=== PATIENT | female | born 1945 | race Caucasian/White ===

== ENCOUNTER 2016-12-04 08:25 | Day surgery (SDC) | payer MEDICARE ==
[~2016-12-04] VITALS: Ht 160 cm; Wt 97.5 kg
[~2016-12-04 08:25] MED LIST: APIX5TAB PO; ATOR10TA9 PO; DABI150C PO; FLUT9.9S NAS; LOSA100T6 PO; METO50TA82 PO; POLY17PO5 PO; SOTA120T26 PO
[2016-12-04 08:55] VITALS: BP 139/86
[2016-12-04] MEDS ORDERED: VALS160T3 PO (09:34)
[2016-12-04 10:10] LABS: ASPARTATE AMINO TRANSFERASE 23 U/L (15-37); BLOOD UREA NITROGEN 13 mg/dL (7-18)
[2016-12-04] MEDS ORDERED: PROPOFOL 10 MG/ML, 20ML ONE (10:53)
== END 2016-12-04 12:10 | disposition home or self-care (01) ==
LOC: CACL 08:25
PROVIDERS: ATTEND Internal Medicine Cardiovascular Disease
DX: I48.0 Paroxysmal atrial fibrillation (principal); I10 Essential (primary) hypertension; E78.5 Hyperlipidemia, unspecified; G47.33 Obstructive sleep apnea (adult) (pediatric); Z88.2 Allergy status to sulfonamides; Z88.6 Allergy status to analgesic agent; Z91.041 Radiographic dye allergy status; Z86.73 Personal history of transient ischemic attack (TIA), and cerebral infarction without residual deficits; Z79.01 Long term (current) use of anticoagulants
CPT/HCPCS: 36415; 71020; 80053; 85025; 92960; J2704

== ENCOUNTER 2017-02-19 10:25 | Day surgery (SDC) | payer MEDICARE ==
[~2017-02-19 10:25] MED LIST changes: +VALS160T3 PO
[2017-02-19] MEDS ORDERED: HYDR12.53 PO (11:16)
[2017-02-19] MEDS ORDERED: PROPOFOL 10 MG/ML, 20ML ONE (12:31)
[2017-02-19 12:43] LABS: BLOOD UREA NITROGEN 11 mg/dL (7-18)
[2017-02-19] MEDS ORDERED: SODIUM CHLORIDE FLUSH 10ML SYR IVF SCH (21:00)
== END 2017-02-19 13:47 ==
LOC: CACL 10:25
PROVIDERS: ATTEND Internal Medicine Cardiovascular Disease
DX: I48.91 Unspecified atrial fibrillation (principal); E78.5 Hyperlipidemia, unspecified; I10 Essential (primary) hypertension; Z88.6 Allergy status to analgesic agent; Z88.1 Allergy status to other antibiotic agents; Z91.09 Other allergy status, other than to drugs and biological substances; Z86.73 Personal history of transient ischemic attack (TIA), and cerebral infarction without residual deficits; Z87.891 Personal history of nicotine dependence
CPT/HCPCS: 36415; 80048; 92960; 93005; J2704

== ENCOUNTER → 2017-03-19 | Outpatient (CLI) | payer MEDICARE ==
[~2017-03-19] MED LIST changes: +ACET325T14 PO; +HYDR12.53 PO; +OMNIPAQUE 350 MG/ML, 150 ML BOTTLE ONE
== END | disposition home or self-care (01) ==
LOC: CFH 03-17 09:47
PROVIDERS: ATTEND Internal Medicine Cardiovascular Disease
DX: I48.91 Unspecified atrial fibrillation (principal)
CPT/HCPCS: 75572; Q9967; 71020

== ENCOUNTER 2017-03-20 06:35 | Observation (INO) | payer MEDICARE ==
[2017-03-17 11:54] VITALS: BP 165/71
[2017-03-17 12:18] LABS: HEMATOCRIT 43.6 % (34.6-47.8); HEMOGLOBIN 14.8 g/dL (11.7-16.4); WHITE BLOOD COUNT 8.8 x10^3/uL (3.4-10)
[2017-03-17 12:27] LABS: ASPARTATE AMINO TRANSFERASE 15 U/L (15-37); BLOOD UREA NITROGEN 17 mg/dL (7-18)
[~2017-03-20] VITALS: Ht 160 cm; Wt 99.8 kg
[~2017-03-20 06:35] MED LIST changes: -ACET325T14 PO; -OMNIPAQUE 350 MG/ML, 150 ML BOTTLE ONE
[2017-03-20] MEDS ORDERED: SODIUM CHLORIDE 0.9% 1,000 ML IV SCH ×2 (06:52→07:00)
[2017-03-20] MEDS ORDERED: PROTAMINE SULFATE 10 MG/ML, 5ML ONE (07:41)
[2017-03-20] MEDS ORDERED: HEPARIN 1,000 UNITS/ML, 10ML ONE (07:41)
[2017-03-20] MEDS ORDERED: LIDOCAINE 2%, 20ML ONE (07:41)
[2017-03-20] MEDS ORDERED: MIDAZOLAM 1 MG/ML, 5ML ONE (07:52)
[2017-03-20] MEDS ORDERED: FENTANYL PF 100 MCG/2ML ONE ×2 (07:52→08:36)
[2017-03-20] MEDS ORDERED: DEXAMETHASONE 4 MG/ML, 1ML ONE (08:00)
[2017-03-20] MEDS ORDERED: EPHEDRINE 50 MG/ML, 1ML ONE (08:00)
[2017-03-20] MEDS ORDERED: ROCURONIUM 10 MG/ML ONE (08:00)
[2017-03-20] MEDS ORDERED: PROPOFOL 10 MG/ML, 20ML ONE (08:00)
[2017-03-20] MEDS ORDERED: SUCCINYLCHOLINE 20 MG/ML, 10ML ONE (08:00)
[2017-03-20] MEDS ORDERED: ONDANSETRON 2MG/ML, 2ML ONE (08:00)
[2017-03-20] MEDS ORDERED: ZOLPIDEM 5MG TABLET PO PRN (12:00)
[2017-03-20] MEDS ORDERED: ACETAMINOPHEN 325 MG TABLET PO PRN ×2 (12:00→12:30)
[2017-03-20] MEDS ORDERED: HYDROmorphone 1 MG/ML, 1ML IV PRN (12:30)
[2017-03-20] MEDS ORDERED: PROMETHAZINE 25 MG/ML, 1ML IV PRN (12:30)
[2017-03-20] MEDS ORDERED: MIDAZOLAM 1 MG/ML, 2ML IV PRN (12:30)
[2017-03-20] MEDS ORDERED: OXYcodone 5 MG/5 ML ORAL.SOL UDC PO PRN (12:30)
[2017-03-20] MEDS ORDERED: FENTANYL PF 100 MCG/2ML IV PRN (12:30)
[2017-03-20] MEDS ORDERED: hydrALAzine 20 MG/ML, 1ML IV PRN (12:30)
[2017-03-20] MEDS ORDERED: ALBUTEROL SULFATE 2.5 MG/3 ML NPPB PRN (12:30)
[2017-03-20] MEDS ORDERED: LABETALOL 5MG/ML, 20ML IV PRN (12:30)
[2017-03-20] MEDS ORDERED: ONDANSETRON 2MG/ML, 2ML IVPush PRN (12:30)
[2017-03-20] MEDS ORDERED: MEPERIDINE/PF 25MG/0.5ML IVPush PRN (12:30)
[2017-03-20] MEDS ORDERED: hydrALAzine 20 MG/ML, 1ML ONE (12:35)
[2017-03-20] MEDS ORDERED: OXYcodone 5 MG/5 ML ORAL.SOL UDC ONE (12:36)
[2017-03-20] MEDS: APIXABAN 5 MG TABLET PO SCH ×2 (12:45→21:52)
[2017-03-20 19:49] VITALS: BP 118/60
[2017-03-20] MEDS ORDERED: ATORVASTATIN 10 MG TABLET PO SCH (21:00)
[2017-03-20] MEDS: SOTALOL 120MG TABLET PO SCH (21:52)
[2017-03-21 02:00] VITALS: BP 101/63
[2017-03-21 07:26] VITALS: BP 109/67
[2017-03-21] MEDS ORDERED: ACET325T14 PO (08:21)
[2017-03-21] MEDS: APIXABAN 5 MG TABLET PO SCH (08:54)
[2017-03-21] MEDS: SOTALOL 120MG TABLET PO SCH (08:54)
[2017-03-21] MEDS ORDERED: HYDROCHLOROTHIAZIDE 12.5 MG CAPSULE PO SCH (09:00)
[2017-03-21] MEDS ORDERED: VALSARTAN 160 MG TABLET PO SCH (09:00)
[2017-03-21 12:49] VITALS: BP 94/58
== END 2017-03-21 18:14 | disposition home or self-care (01) ==
LOC: CACL 06:35 → ORIP 11:41 → 5SO 13:48
PROVIDERS: ADMIT Internal Medicine Cardiovascular Disease; ATTEND Internal Medicine Cardiovascular Disease
DX: I48.0 Paroxysmal atrial fibrillation (principal); I48.92 Unspecified atrial flutter; I10 Essential (primary) hypertension; E78.5 Hyperlipidemia, unspecified; E66.9 Obesity, unspecified; Z68.38 Body mass index [BMI] 38.0-38.9, adult; Z86.73 Personal history of transient ischemic attack (TIA), and cerebral infarction without residual deficits
CPT/HCPCS: 36415; 71020; 80053; 85025; 85347; 85610; 85730; 93308; 93312; 93321; 93325; 93613; 93656; 93662; C1730; C1732; C1759; C1760; C1766; C1893; C1894; G0378; J0330; J0360; J1100; J1644; J2250; J2405; J2704; J2720; J3010; J3490

== ENCOUNTER 2017-03-21 18:28 | Emergency (ER) | payer MEDICARE ==
[~2017-03-21] VITALS: Ht 160 cm; Wt 94.0 kg
[~2017-03-21 18:28] MED LIST changes: +ACET325T14 PO
[2017-03-21] MEDS ORDERED: SODIUM CHLORIDE FLUSH 10ML SYR IVF ONE (19:00)
[2017-03-21] MEDS ORDERED: ACETAMINOPHEN 500 MG TABLET PO ONE (19:30)
[2017-03-21 19:35] LABS: HEMATOCRIT 39.2 % (34.6-47.8); HEMOGLOBIN 12.9 g/dL (11.7-16.4); WHITE BLOOD COUNT 13.8 x10^3/uL (3.4-10)
[2017-03-21 19:43] VITALS: BP 119/53
[2017-03-21 19:43] LABS: BLOOD UREA NITROGEN 18 mg/dL (7-18)
[2017-03-21] MEDS ORDERED: POTASSIUM CHLORIDE 20 MEQ TAB.ER.PRT PO ONE (20:30)
[2017-03-21] MEDS ORDERED: POTASSIUM CHLORIDE 20 MEQ TAB.ER.PRT ONE (20:39)
== END 2017-03-21 20:49 | disposition home or self-care (01) ==
LOC: ED 19:55
DX: I48.91 Unspecified atrial fibrillation (principal); E87.6 Hypokalemia; I10 Essential (primary) hypertension; E78.00 Pure hypercholesterolemia, unspecified; Z87.891 Personal history of nicotine dependence; Z90.49 Acquired absence of other specified parts of digestive tract; Z90.710 Acquired absence of both cervix and uterus; Z98.890 Other specified postprocedural states
CPT/HCPCS: 36415; 71010; 80048; 81001; 82040; 85025; 87086; 93005; 99285

== ENCOUNTER → 2018-07-13 | Outpatient (CLI) | payer MEDICARE ==
[~2018-07-13] MED LIST changes: +HYDR12.517 PO; -HYDR12.53 PO; +IRBE150T25 PO; -LOSA100T6 PO; +LOSA100T7 PO; +OMNIPAQUE 350 MG/ML, 150 ML BOTTLE ONE
== END | disposition home or self-care (01) ==
LOC: RAD 10:15
PROVIDERS: ATTEND Internal Medicine Cardiovascular Disease
DX: I48.91 Unspecified atrial fibrillation (principal); Z86.73 Personal history of transient ischemic attack (TIA), and cerebral infarction without residual deficits
CPT/HCPCS: 71046; 75572; Q9967

== ENCOUNTER 2018-07-16 06:28 | Observation (INO) | payer MEDICARE ==
[2018-07-13 11:34] LABS: ALANINE AMINOTRANSFERASE 17 U/L (12-78); ANION GAP 5 mmol/L (5-15); CHLORIDE 103 mmol/L (98-107); CREATININE 0.72 mg/dL (0.55-1.02)
[2018-07-13 11:36] LABS: ALKALINE PHOSPHATASE 125 U/L (45-117); BILIRUBIN,TOTAL 0.5 mg/dL (0.2-1.0); TOTAL PROTEIN 8.1 g/dL (6.4-8.2)
[2018-07-13 11:37] LABS: BASOPHILS # (AUTO) 0.02 x10^3/uL (0-0.1); BASOPHILS % (AUTO) 0 % (0-1); EOSINOPHILS % (AUTO) 0 % (1-7); LYMPHOCYTES # (AUTO) 0.81 x10^3/uL (1-3.4); LYMPHOCYTES % (AUTO) 13 % (22-44); MD NO; MEAN CORPUSCULAR HEMOGLOBIN 31.8 pg (27.0-34.8); MEAN CORPUSCULAR HGB CONC 33.9 g/dL (32.4-35.8); MEAN CORPUSCULAR VOLUME 94.1 fL (80-100); MEAN PLATELET VOLUME 9.7 fL (7.4-10.4); MONOCYTES # (AUTO) 0.18 x10^3/uL (0.2-0.8); MONOCYTES % (AUTO) 3 % (2-9); NEUTROPHILS # (AUTO) 5.19 x10^3/uL (1.8-6.8); NEUTROPHILS % (AUTO) 84 % (42-75); PLATELET COUNT 289 x10^3/uL (130-400); RED BLOOD COUNT 4.83 x10^6/uL (3.82-5.3); RED CELL DISTRIBUTION WIDTH 13.3 % (9.6-15.2)
[~2018-07-16] VITALS: Ht 160 cm; Wt 100.9 kg
[~2018-07-16 06:28] MED LIST changes: +LOSA100T14 PO; -LOSA100T7 PO; -OMNIPAQUE 350 MG/ML, 150 ML BOTTLE ONE
[2018-07-16] MEDS ORDERED: SODIUM CHLORIDE 0.9% 1,000 ML IV SCH ×2 (06:45→07:00)
[2018-07-16] MEDS ORDERED: MIDAZOLAM 1 MG/ML, 2ML ONE (07:56)
[2018-07-16] MEDS ORDERED: FENTANYL PF 250 MCG/5ML ONE (07:56)
[2018-07-16] MEDS ORDERED: ONDANSETRON 2MG/ML, 2ML ONE (08:03)
[2018-07-16] MEDS ORDERED: PHENYLEPHRINE 10 MG/ML ONE (08:04)
[2018-07-16] MEDS ORDERED: DEXAMETHASONE 4 MG/ML, 1ML ONE (08:04)
[2018-07-16] MEDS ORDERED: PROPOFOL 10 MG/ML, 20ML ONE (08:04)
[2018-07-16] MEDS ORDERED: ROCURONIUM 10MG/ML,5ML ONE (08:04)
[2018-07-16] MEDS ORDERED: SUCCINYLCHOLINE 20 MG/ML, 10ML ONE (08:04)
[2018-07-16] MEDS ORDERED: PROTAMINE SULFATE 10 MG/ML, 5ML ONE (11:16)
[2018-07-16] MEDS ORDERED: APIXABAN 5 MG TABLET ONE (11:59)
[2018-07-16] MEDS ORDERED: PROMETHAZINE 12.5 MG SUPP PR PRN (12:00)
[2018-07-16] MEDS ORDERED: ONDANSETRON 2MG/ML, 2ML IV PRN (12:00)
[2018-07-16] MEDS ORDERED: PROMETHAZINE 25 MG/ML, 1ML IV PRN (12:00)
[2018-07-16] MEDS ORDERED: LABETALOL 5MG/ML, 20ML IV PRN (12:00)
[2018-07-16] MEDS ORDERED: ALBUTEROL SULFATE 2.5 MG/3 ML NPPB PRN (12:00)
[2018-07-16] MEDS ORDERED: FENTANYL PF 100 MCG/2ML IV PRN (12:00)
[2018-07-16] MEDS ORDERED: HALOPERIDOL 5 MG/ML IV PRN (12:00)
[2018-07-16] MEDS ORDERED: MEPERIDINE/PF 25MG/0.5ML IVPush PRN (12:00)
[2018-07-16] MEDS ORDERED: EPHEDRINE 50 MG/ML, 1ML IVPush PRN (12:00)
[2018-07-16] MEDS ORDERED: hydrALAzine 20 MG/ML, 1ML IV PRN (12:00)
[2018-07-16] MEDS ORDERED: OXYcodone 5 MG/5 ML ORAL.SOL UDC PO PRN (12:00)
[2018-07-16] MEDS ORDERED: ACETAMINOPHEN 325 MG TABLET PO PRN (12:00)
[2018-07-16] MEDS ORDERED: DIAZEPAM 5 MG/ML, 2ML IVPush PRN (12:00)
[2018-07-16] MEDS ORDERED: ZOLPIDEM 5MG TABLET PO PRN (12:00)
[2018-07-16] MEDS ORDERED: HYDROmorphone 2 MG/ML, 1ML IVPush PRN (12:00)
[2018-07-16] MEDS ORDERED: MIDAZOLAM 1 MG/ML, 2ML IV PRN (12:00)
[2018-07-16] MEDS ORDERED: ONDANSETRON ODT 8 MG PO PRN (12:00)
[2018-07-16] MEDS ORDERED: MORPHINE SULFATE 4 MG/ML, 1ML IVPush PRN (12:00)
[2018-07-16] MEDS: APIXABAN 5 MG TABLET PO SCH ×2 (12:24→20:29)
[2018-07-16 14:09] VITALS: BP 123/74
[2018-07-16 14:45] VITALS: BP 125/76
[2018-07-16 20:17] VITALS: BP 117/74
[2018-07-16] MEDS: SOTALOL 120MG TABLET PO SCH (20:28)
[2018-07-16 20:30] VITALS: BP 132/62
[2018-07-16] MEDS ORDERED: ATORVASTATIN 10 MG TABLET PO SCH (21:00)
[2018-07-17 02:42] VITALS: BP 105/66
[2018-07-17 07:28] VITALS: BP 123/75
[2018-07-17] MEDS: SOTALOL 120MG TABLET PO SCH (07:52)
[2018-07-17] MEDS: APIXABAN 5 MG TABLET PO SCH (07:52)
[2018-07-17] MEDS ORDERED: FLUTICASONE NASAL SPRAY 16GM NAS SCH (09:00)
[2018-07-17] MEDS ORDERED: HYDROCHLOROTHIAZIDE 12.5 MG CAPSULE PO SCH (09:00)
[2018-07-17] MEDS ORDERED: IRBESARTAN 150 MG TABLET PO SCH (09:00)
== END 2018-07-17 12:20 | disposition home or self-care (01) ==
LOC: CACL 06:28 → ORIP 11:38 → 5SO 13:18
PROVIDERS: ADMIT Internal Medicine Cardiovascular Disease; ATTEND Internal Medicine Cardiovascular Disease
DX: I48.91 Unspecified atrial fibrillation (principal)
CPT/HCPCS: 36415; 80053; 85025; 85347; 93005; 93308; 93312; 93321; 93325; 93613; 93656; 93657; 93662; C1730; C1759; C1766; C1893; C1894; C2630; G0378; J0330; J1100; J2250; J2370; J2405; J2704; J2720; J3010; J3490; 93621

== ENCOUNTER 2019-01-25 12:56 | Outpatient (CLI) | payer MEDICARE ==
[~2019-01-25 12:56] MED LIST changes: +REGADENOSON 0.4 MG/5 ML SYRINGE ONE
== END 2019-01-25 23:59 | disposition home or self-care (01) ==
LOC: CFH 12:56
PROVIDERS: ATTEND Nurse Practitioner Family
DX: Z01.810 Encounter for preprocedural cardiovascular examination (principal); I21.09 ST elevation (STEMI) myocardial infarction involving other coronary artery of anterior wall
CPT/HCPCS: 78452; 93017; A9502; J2785

== ENCOUNTER → 2019-06-16 | Outpatient (CLI) | payer MEDICARE ==
[~2019-06-16] MED LIST changes: -REGADENOSON 0.4 MG/5 ML SYRINGE ONE
[2019-06-16 14:23] LABS: BASOPHILS # (AUTO) 0.03 x10^3/uL (0-0.1); BASOPHILS % (AUTO) 1 % (0-1); EOSINOPHILS % (AUTO) 1 % (1-7); LYMPHOCYTES # (AUTO) 2.45 x10^3/uL (1-3.4); LYMPHOCYTES % (AUTO) 36 % (22-44); MD NO; MEAN CORPUSCULAR HEMOGLOBIN 31.9 pg (27.0-34.8); MEAN CORPUSCULAR HGB CONC 32.9 g/dL (32.4-35.8); MEAN PLATELET VOLUME 9.3 fL (7.4-10.4); MONOCYTES # (AUTO) 0.69 x10^3/uL (0.2-0.8); MONOCYTES % (AUTO) 10 % (2-9); NEUTROPHILS # (AUTO) 3.51 x10^3/uL (1.8-6.8); NEUTROPHILS % (AUTO) 52 % (42-75); PLATELET COUNT 223 x10^3/uL (130-400); RED BLOOD COUNT 4.13 x10^6/uL (3.82-5.3); RED CELL DISTRIBUTION WIDTH 13.7 % (9.6-15.2)
[2019-06-16 14:33] LABS: ALANINE AMINOTRANSFERASE 27 U/L (12-78); ALBUMIN 3.4 g/dL (3.4-5.0); ANION GAP 4 mmol/L (5-15); CALCIUM 8.7 mg/dL (8.5-10.1); CHLORIDE 107 mmol/L (98-107); CREATININE 0.64 mg/dL (0.55-1.02)
[2019-06-16 14:36] LABS: ALKALINE PHOSPHATASE 114 U/L (45-117); BILIRUBIN,TOTAL 0.4 mg/dL (0.2-1.0); TOTAL PROTEIN 7.1 g/dL (6.4-8.2)
== END | disposition home or self-care (01) ==
LOC: STAR 13:27
PROVIDERS: ATTEND Internal Medicine Cardiovascular Disease
DX: Z01.818 Encounter for other preprocedural examination (principal); M47.814 Spondylosis without myelopathy or radiculopathy, thoracic region
CPT/HCPCS: 36415; 71046; 80053; 85025

== ENCOUNTER 2019-06-20 06:29 | Inpatient (IN) | payer MEDICARE ==
[2019-06-16 13:58] VITALS: BP 162/82
[~2019-06-20] VITALS: Ht 160 cm; Wt 84.8 kg
[~2019-06-20 06:29] MED LIST changes: -IRBE150T25 PO; +IRBE150T9 PO
[2019-06-20] MEDS ORDERED: SODIUM CHLORIDE 0.9% 1,000 ML IV SCH ×2 (06:43→07:00)
[2019-06-20] MEDS ORDERED: MIDAZOLAM 1 MG/ML, 2ML ONE (08:01)
[2019-06-20] MEDS ORDERED: FENTANYL PF 250 MCG/5ML ONE (08:01)
[2019-06-20] MEDS ORDERED: SUCCINYLCHOLINE 20 MG/ML, 10ML ONE (08:04)
[2019-06-20] MEDS ORDERED: ROCURONIUM 10MG/ML,5ML ONE (08:04)
[2019-06-20] MEDS ORDERED: PROPOFOL 10 MG/ML, 20ML ONE (08:04)
[2019-06-20] MEDS ORDERED: LIDOCAINE 1%, 20ML ONE (08:34)
[2019-06-20] MEDS ORDERED: DEXAMETHASONE 4 MG/ML, 1ML ONE (08:41)
[2019-06-20] MEDS ORDERED: HEPARIN 1,000 UNITS/ML, 10ML ONE (10:15)
[2019-06-20] MEDS ORDERED: NEOSTIGMINE 1 MG/ML, 10ML ONE (12:10)
[2019-06-20] MEDS ORDERED: GLYCOPYRROLATE 0.2MG/1ML, 5ML ONE (12:10)
[2019-06-20] MEDS ORDERED: ACETAMINOPHEN 325 MG TABLET PO PRN ×2 (12:30→13:00)
[2019-06-20] MEDS ORDERED: POLYETHYLENE GLYCOL 17 GM PACKET PO PRN (12:30)
[2019-06-20] MEDS ORDERED: MEPERIDINE/PF 25MG/ML,1ML IVPush PRN (13:00)
[2019-06-20] MEDS ORDERED: LABETALOL 5MG/ML, 20ML IV PRN (13:00)
[2019-06-20] MEDS ORDERED: ONDANSETRON ODT 8 MG PO PRN (13:00)
[2019-06-20] MEDS ORDERED: OXYcodone 5 MG/5 ML ORAL.SOL UDC PO PRN (13:00)
[2019-06-20] MEDS ORDERED: hydrALAzine 20 MG/ML, 1ML IV PRN (13:00)
[2019-06-20] MEDS ORDERED: HYDROmorphone 2 MG/ML, 1ML IVPush PRN (13:00)
[2019-06-20] MEDS ORDERED: ONDANSETRON 2MG/ML, 2ML IV PRN (13:00)
[2019-06-20] MEDS ORDERED: DIAZEPAM 5 MG/ML, 2ML IVPush PRN (13:00)
[2019-06-20] MEDS ORDERED: HALOPERIDOL 5 MG/ML IV PRN (13:00)
[2019-06-20] MEDS ORDERED: EPHEDRINE 50 MG/ML, 1ML IVPush PRN (13:00)
[2019-06-20] MEDS ORDERED: FENTANYL PF 100 MCG/2ML IV PRN (13:00)
[2019-06-20] MEDS ORDERED: PROMETHAZINE 12.5 MG SUPP PR PRN (13:00)
[2019-06-20] MEDS ORDERED: ALBUTEROL SULFATE 2.5 MG/3 ML NPPB PRN (13:00)
[2019-06-20] MEDS ORDERED: MIDAZOLAM 1 MG/ML, 2ML IV PRN (13:00)
[2019-06-20] MEDS ORDERED: PROMETHAZINE 25 MG/ML, 1ML IV PRN (13:00)
[2019-06-20] MEDS ORDERED: APIXABAN 5 MG TABLET ONE (14:00)
[2019-06-20 20:01] VITALS: BP 133/84
[2019-06-20] MEDS ORDERED: ATORVASTATIN 10 MG TABLET PO SCH (21:00)
[2019-06-20] MEDS ORDERED: APIXABAN 5 MG TABLET PO SCH (21:00)
[2019-06-20] MEDS: SOTALOL 120MG TABLET PO SCH (21:16)
[2019-06-20] MEDS: APIXABAN 5 MG TABLET PO SCH (23:57)
[2019-06-21 03:44] VITALS: BP 100/63
[2019-06-21 08:28] VITALS: BP 121/63
[2019-06-21] MEDS ORDERED: [UNRECOGNIZED DRUG - REMARK] NAS SCH (09:00)
[2019-06-21] MEDS: APIXABAN 5 MG TABLET PO SCH (09:01)
[2019-06-21] MEDS: SOTALOL 120MG TABLET PO SCH (09:01)
== END 2019-06-21 11:51 | disposition home or self-care (01) | DRG 274 ==
LOC: CACL 06:29 → 5SO 14:40 → CACL 23:28
PROVIDERS: ADMIT Internal Medicine Cardiovascular Disease; ATTEND Internal Medicine Cardiovascular Disease
PROC: 02583ZZ Destruction of Conduction Mechanism, Percutaneous Approach (ICD-10-PCS; 2019-06-20)
PROC: 4A0234Z Measurement of Cardiac Electrical Activity, Percutaneous Approach (ICD-10-PCS; 2019-06-20)
PROC: 02K83ZZ Map Conduction Mechanism, Percutaneous Approach (ICD-10-PCS; 2019-06-20)
PROC: 4A023FZ Measurement of Cardiac Rhythm, Percutaneous Approach (ICD-10-PCS; principal; 2019-06-20 08:00)
DX: I48.0 Paroxysmal atrial fibrillation (principal); D68.69 Other thrombophilia; I48.4 Atypical atrial flutter; Z79.01 Long term (current) use of anticoagulants; Z88.2 Allergy status to sulfonamides; Z91.041 Radiographic dye allergy status
CPT/HCPCS: 85347; 93306; 93312; 93321; 93325; 93613; 93655; 93656; 93657; 93662; C1732; C1766; C1893; C1894; G0378; J1100; J1644; J2250; J2704; J2710; J3010; C1730; C1759; J0330